=== PATIENT | female | born 1965 | race Caucasian/White ===

== ENCOUNTER 2024-08-21 18:59 | Emergency (ER) | payer OTHER ==
[~2024-08-21] VITALS: Ht 167.6 cm; Wt 70.5 kg
[~2024-08-21 18:59] MED LIST: NAPR250T74; NOR10T; QUET25TA37; TOPI25TA43; ZOLM5SPR
[2024-08-21 19:08] VITALS: BP 163/96; PULSE 100; RESP 24; O2SAT 98
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
[2024-08-21 19:52] LABS: Basophils # (auto) 0 10 ^3/uL (0-0.2); Basophils % (auto) 0.3 % (0.0-2.0); Eosinophils # (auto) 0.1 10 ^3/uL (0-0.8); Eosinophils % (auto) 1.3 % (0.0-7.0); Hematocrit 32.2 % (36.0-46.0); Hemoglobin 10.6 g/dL (12.2-16.2); Lymphocytes % (auto) 36.4 % (10.0-50.0); Mean Corpuscular Hemoglobin 28.7 pg (28.0-32.0); Mean Corpuscular Hgb Conc. 32.8 g/dL (32.0-36.0); Mean Corpuscular Volume 87.4 fL (80.0-100.0); Monocytes # (auto) 0.4 10 ^3/uL (0-1.3); Monocytes % (auto) 7.1 % (0.0-12.0); Neutrophils % (auto) 54.9 % (37.0-80.0); Nucleated Red Blood Cells % 0.2 %; Platelet Count (auto) 333 10^3/uL (140-450); Red Blood Cells 3.69 10^6/uL (4.0-5.20); Red Cell Distribution Width 14.4 % (11.8-14.3); White Blood Cell 5.5 10^3/uL (4.4-10.8)
[2024-08-21 20:21] LABS: Alanine Aminotransferase 14 U/L (7-40); Albumin 4.6 g/dL (3.2-4.8); Anion Gap 9 (5-15); BUN/Creatinine Ratio 18.5 (10.0-20.0); Blood Alcohol 4.3 mg/dL (<10); Blood Urea Nitrogen 20 mg/dL (9-23); Calcium 9.3 mg/dL (8.7-10.4); Carbon Dioxide 26 mmol/L (20-31); Chloride 104 mmol/L (98-107); Sodium 139 mmol/L (136-145)
[2024-08-21 20:24] LABS: Acetaminophen < 2.0 UG/ML (10.0-20.0); Salicylate < 3.0 mg/dL (-30)
[2024-08-21 20:27] LABS: Lactic Acid w/Reflex 2.8 mmol/L (0.4-2.0)
[2024-08-21 20:28] LABS: Alkaline Phosphatase 155 U/L (46-116); Aspartate Aminotransferase 9 U/L (13-40); Bilirubin, Total 0.2 mg/dL (0.2-1.0); Glucose 110 mg/dL (74-106); Potassium 3.4 mmol/L (3.5-5.1); Total Protein 8.4 g/dL (5.7-8.2)
--- NOTE | 2024-08-21 20:39 | DVH ---
EXAM: XY CHEST PORTABLE TECHNIQUE: Single frontal chest radiograph CLINICAL HISTORY: aloc, weak COMPARISON: None Findings/Impression: Frontal chest radiograph demonstrates no acute osseous or superficial soft tissue abnormalities. The trachea is midline. The cardiac silhouette and mediastinum are within normal limits. No pneumothorax, pleural effusions, or consolidations.
--- NOTE | 2024-08-21 20:42 | DVH ---
EXAM: CT HEAD WITHOUT CONTRAST INDICATION: ALOC TECHNIQUE: CT of the head without intravenous contrast. Radiation Dose Information: CT Dose: CTDI volume is 53.9 mGy. Dose-length product is 954.55 mGy*cm The dose indicators for CT are the volume Computed Tomography (CT) Dose Index (CTDIvol) and the Dose Length Product (DLP), and are measured in units of mGy and mGy-cm, respectively. These indicators are not patient dose, but values generated from the CT scanner acquisition factors. The report includes radiation exposure data for exposures received during this examination. COMPARISON: None FINDINGS: There is no evidence of acute intracranial hemorrhage, extra-axial collection, mass effect, midline s hift, herniation or hydrocephalus. The ventricles, sulci and cisterns are age appropriate. The shay-white differentiation is intact. Patchy periventricular and subcortical white matter hypoattenuation is nonspecific but may be related to small vessel ischemic disease. The visualized paranasal sinuses and mastoid air cells are clear. The surrounding soft tissues and osseous structures are unremarkable. IMPRESSION: 1. No acute intracranial hemorrhage. 2. No CT findings of territorial ischemia. HS:Y
[2024-08-21] MEDS ORDERED: SODIUM CHLORIDE 0.9% 1,800 ML IV ONE (20:45)
[2024-08-21] MEDS ORDERED: PIPERACILLIN-TAZO 4.5GM 100 ML IV ONE (20:45)
[2024-08-21 22:38] LABS: Urine Bacteria None Seen /hpf (None Seen)
[2024-08-21 22:51] LABS: Urine Amorphous Crystal FEW /hpf (None Seen); Urine Blood Negative /uL (Negative); Urine Clarity Ex.Turbid (Clear); Urine Color Light-Yellow (Yellow); Urine Mucus FEW (None Seen); Urine Protein, UAD TRACE (Negative); Urine Specific Gravity 1.032 (1.001-1.035); Urine Squamous Epithelial Cell FEW /hpf (<5); Urine Urobilinogen Normal (Negative); Urine WBC 27 /HPF (0-5); Urine pH 5.5 (5.0-9.0)
[2024-08-21 23:02] LABS: Opiate Scree,Urine Neg (NEGATIVE); Phencyclidine Screen, Urine Neg (NEGATIVE)
[2024-08-21 23:06] LABS: Amphetamine Screen, Urine Neg (NEGATIVE); Barbiturate Scree,Urine Neg (NEGATIVE); Benzodiazephine Screen, Urine Neg (NEGATIVE); Cannabinoid Screen, Urine Neg (NEGATIVE); Cocaine Screen, Urine Neg (NEGATIVE)
--- NOTE | 2024-08-22 08:57 | ECG ---
[facility] Test Date: 2024-08-21 Test Time: 19:02:22 Pat Name: GABY WASHINGTON Department: er Room: Gender: F Machine Wiper: gp : [phone] Requested By: DAWSON PACHECO Order Number: [id number] Reading MD: Cody Hampton Measurements Intervals [place] Rate: 101 P: 68 NV: 192 QRS: 85 QRSD: 98 T: 38 QT: 360 QTc: 467 Interpretive Statements Sinus tachycardia Electronically Signed On 08-23-2024 17:48:27 PST by Cody Hampton Please click the below link to view image of tracing.
== END 2024-08-21 23:14 | disposition left against medical advice (07) ==
LOC: EDSEX 18:59 → EDBD 18:59 → ER 18:59
DX: G93.40 Encephalopathy, unspecified (principal); R41.82 Altered mental status, unspecified; E87.20 Acidosis, unspecified; F17.210 Nicotine dependence, cigarettes, uncomplicated; Z88.1 Allergy status to other antibiotic agents; Z90.710 Acquired absence of both cervix and uterus; Z79.899 Other long term (current) drug therapy; V49.9XXA Car occupant (driver) (passenger) injured in unspecified traffic accident, initial encounter; Y93.89 Activity, other specified; Y92.89 Other specified places as the place of occurrence of the external cause; Y99.8 Other external cause status
CPT/HCPCS: 36415; 70450; 71045; 80053; 80307; 80320; 80329; 81001; 83605; 83735; 84439; 84443; 85025; 87040; 93005; 99291